=== PATIENT | female | born 1945 | race Caucasian/White ===

== ENCOUNTER 2018-12-15 14:52 | Outpatient (CLI) | payer MEDICARE, MEDICAID ==
[2018-12-15 15:41] LABS: BASOPHILS % (AUTO) 0.8 % (0-1); EOSINOPHILS # (AUTO) 0.1 X10'3 (0-0.9); EOSINOPHILS % (AUTO) 1.3 % (0-6); HEMATOCRIT 39.5 % (35.0-45.0); HEMOGLOBIN 13.5 g/dl (12.0-16.0); LYMPHOCYTES # (AUTO) 1.2 X10'3 (1.1-4.8); LYMPHOCYTES % (AUTO) 18.3 % (21-51); MEAN CORPUSCULAR HEMOGLOBIN 33.7 PG (27.0-31.0); MEAN CORPUSCULAR HGB CONC 34.1 g/dL (33.0-36.5); MEAN CORPUSCULAR VOLUME 98.7 FL (78-98); MEAN PLATELET VOLUME 8.8 FL (7.4-10.4); MONOCYTES # (AUTO) 0.6 X10'3 (0-0.9); MONOCYTES % (AUTO) 9.1 % (2-12); NEUTROPHILS # (AUTO) 4.5 X10'3 (1.8-7.7); NEUTROPHILS % (AUTO) 70.5 % (42-75); PLATELET COUNT 196 X10'3 (140-440); RED BLOOD COUNT 4.01 X10'6 (4.20-5.60); RED CELL DISTRIBUTION WIDTH 12.6 % (11.5-14.5); WHITE BLOOD COUNT 6.4 X10'3 (4.5-11.0)
[2018-12-15 15:50] LABS: PARTIAL THROMBOPLASTIN TIME 29 SECONDS (22-32)
[2018-12-15 15:53] LABS: ALANINE AMINOTRANSFERASE 28 U/L (12-78); ALBUMIN/GLOBULIN RATIO 1.1 (1.1-1.5); ALKALINE PHOSPHATASE 88 IU/L (46-116); ANION GAP 10 (8-16); ASPARTATE AMINO TRANSFERASE 24 U/L (10-37); BILIRUBIN,TOTAL 0.5 MG/DL (0.1-1.0); BLOOD UREA NITROGEN 13 MG/DL (7-18); CALCIUM 8.8 MG/DL (8.5-10.1); CHLORIDE 108 MMOL/L (99-107); CREATININE 0.93 MG/DL (0.40-0.90); GLUCOSE 96 MG/DL (70-104); POTASSIUM 3.1 MMOL/L (3.5-5.1); SODIUM 145 MMOL/L (135-145); TOTAL CARBON DIOXIDE 27.1 MMOL/L (24-32); TOTAL PROTEIN 7.5 G/DL (6.4-8.2); eGFR 59 ML/MIN
== END 2018-12-15 23:59 | disposition home or self-care (01) ==
LOC: LAB 14:52
PROVIDERS: ATTEND Otolaryngology
DX: D69.1 Qualitative platelet defects (principal); F17.200 Nicotine dependence, unspecified, uncomplicated
CPT/HCPCS: 36415; 80053; 85025; 85576; 85610; 85730

== ENCOUNTER 2020-12-28 22:43 | Emergency (ER) | payer MEDICARE, MEDICAID ==
[~2020-12-28] VITALS: Ht 162.6 cm; Wt 59.5 kg
[2020-12-28 22:53] VITALS: BP 155/70
[2020-12-28] MEDS ORDERED: DOXY100C43 PO (23:47)
[2020-12-28] MEDS ORDERED: sulfamethoxazole/trimethoprim DS (800/160mg) tablet PO ONE (23:50)
== END 2020-12-29 00:14 | disposition home or self-care (01) ==
LOC: ER 22:43
DX: L03.115 Cellulitis of right lower limb (principal); Z86.19 Personal history of other infectious and parasitic diseases; Z90.49 Acquired absence of other specified parts of digestive tract; Z90.710 Acquired absence of both cervix and uterus; Z79.2 Long term (current) use of antibiotics
CPT/HCPCS: 99283

== ENCOUNTER 2022-12-22 10:55 | Emergency (ER) | payer BC, MEDICAID ==
[~2022-12-22] VITALS: Ht 162.6 cm; Wt 50.9 kg
[2022-12-22 12:58] VITALS: BP 187/68; PULSE 63; O2SAT 94
[2022-12-22 15:19] VITALS: RESP 18
== END 2022-12-22 15:35 | disposition home or self-care (01) ==
LOC: ER 10:55
DX: S00.83XA Contusion of other part of head, initial encounter (principal); W06.XXXA Fall from bed, initial encounter; Y93.89 Activity, other specified; Y92.89 Other specified places as the place of occurrence of the external cause; Y99.8 Other external cause status
CPT/HCPCS: 70450; 99284